=== PATIENT | male | born 1975 | race Caucasian/White ===

== ENCOUNTER 2016-11-05 21:00 | Emergency (ER) | payer OTHER ==
[~2016-11-05] VITALS: Ht 188 cm; Wt 121.1 kg
[~2016-11-05 21:00] MED LIST: ALPR1TAB2 PO; AMOX875T PO; DEXT20TA2 PO; LAMO100T5 PO; OXYC-328 PO; PROM25TA10 PO
[2016-11-05 22:00] VITALS: BP 147/77
--- NOTE | 2016-11-05 22:15 | PHYS DOC ---
Past Medical History Past Medical History: Anxiety, Bipolar, Other Additional Past Medical Histor: CHRONIC BACK PAIN, ADHD Past Surgical History: No Surgical History Alcohol Use: None Drug Use: None Adult General Chief Complaint Chief Complaint: SHOULDER INJURY [facility] HPI Patient is a 41 year old male presents to the emergency department stating that he lifted a pole with his left arm and is having shoulder pain. He states he has pulled his rotator cuff. Patient denies any history of rotator cuff problems in the past. Patient states he is right-hand dominant. He denies any numbness or tingling down to his lower extremity. 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 Patient has decreased comfort with moving his upper arm. Patient states that he has taken Tylenol and ibuprofen with minimal relief. Patient also states that he has an area that is red and around his left ankle. He states that the area itches and watkins he feels like he has been bitten by something. Review of Systems Review of Systems Constitutional: Denies fever or chills [] Eyes: Denies change in visual acuity, redness, or eye pain [] HENT: Denies nasal congestion or sore throat [] Respiratory: Denies cough or shortness of breath [] Cardiovascular: No additional information not addressed in HPI [] GI: Denies abdominal pain, nausea, vomiting, bloody stools or diarrhea [] : Denies dysuria or hematuria [] Musculoskeletal: Denies back pain. Complaint of left shoulder pain Integument: Patient with rash noted on his left lower leg around the ankle area.. Neurologic: Denies headache, focal weakness or sensory changes [] Endocrine: Denies polyuria or polydipsia [] Allergies Allergies Allergies Coded Allergies Type Severity Reaction Last Updated Verified No Known Drug Allergies 01/02/16 No Physical Exam Physical Exam Constitutional: Well developed, well nourished, no acute distress, non-toxic appearance. [] HENT: Normocephalic, atraumatic, bilateral external ears normal, oropharynx moist, no oral exudates, nose normal. [] Eyes: PERRLA, EOMI, conjunctiva normal, no discharge. [] Neck: Normal range of motion, no tenderness, supple, no stridor. [] Cardiovascular:Heart rate regular rhythm, no murmur [] Lungs & Thorax: Bilateral breath sounds clear to auscultation [] Skin: Warm, dry, no erythema, patient has a red rash noted in the left lower leg. Patient appears to have red areas that is raised. Back: No tenderness Extremities: Left shoulder tenderness, no cyanosis, no clubbing, ROM intact, no edema. Patient was noted to have tenderness in the rotator cuff area. Patient has equal sensation noted in the upper arms. Peripheral pulses are 2+ cap refill brisk less than 2 seconds. Neurologic: Alert and oriented X 3, normal motor function, normal sensory function, no focal deficits noted. [] Psychologic: Affect normal, judgement normal, mood normal. [] Current Patient Data Vital Signs Vital Signs Date Time Temp Pulse Resp B/P (MAP) Pulse Ox O2 Delivery O2 Flow Rate FiO2 11/05/16 22:00 97.7 106 21 99 Room Air 97.7 EKG EKG [] Radiology/Procedures Radiology/Procedures [] Course & Med Decision Making Course & Med Decision Making Pertinent Labs and Imaging studies reviewed. (See chart for details) Patient was instructed will place him on doxycycline however I also believe that he needs to be on an antifungal medication. We'll recommend Lotrimin cream for him. X-rays are negative for any bony abnormalities per Dr. Napier. Patient will be placed in a sling with discharge instructions for ice packs on 20 minutes off 20 minutes several times a day elevation as much as possible. Recommended taking his arm out of the sling 3 or 4 different times a day to do active range of motion. Patient was also encouraged to take doxycycline to help with his leg bite area and he will also be provided with Lotrimin cream in which I do believe that will help the rash area. Patient will also be encouraged keep the areas clean and dry. Patient will be discharged home in stable condition signs and symptoms to return back to emergency department as been provided. [] Dragon Disclaimer Dragon Disclaimer This electronic medical record was generated, in whole or in part, using a voice recognition dictation system. Departure Departure Impression: Primary Impression: Left shoulder pain Additional Impression: Ringworm of body Disposition: HOME, SELF-CARE Condition: STABLE Referrals: NO PCP (PCP) SHIRLEY COLBERT II, MD Patient Instructions: Body Ringworm, Shoulder Pain, [id number] Additional Instructions: Activity as tolerated. Wear the sling for the left arm for the next week. Take your arm out of the sling 4-5 times a day to do active range of motion. Tylenol or ibuprofen for pain and discomfort. Ice packs on 20 minutes off 20 minutes several times a day. Follow-up with orthopedic for further pain management for your shoulder. Medications as prescribed for your rash. Keep the area clean and dry. Keep the area as cool as possible to avoid itching and irritation. Follow-up the primary care physician in the next week. Return back to emergency prior signs symptoms of become worse. Scripts Clotrimazole (LOTRIMIN AF) 12 Gm Cream..g. 1 TOMÁS TP BID, #24 GM Prov: AZRA UMANZOR APRN 11/05/16 Doxycycline Hyclate (DOXYCYCLINE HYCLATE) 100 Mg Capsule 1 CAP PO BID, #20 CAP Prov: AZRA UMANZOR APRN 11/05/16 Problem Qualifiers AZRA UMANZOR APRN Nov 05, 2016 22:15
[2016-11-05] MEDS ORDERED: DOXY100C2 PO (22:44)
[2016-11-05] MEDS ORDERED: CLOT12CR2 TP (22:44)
--- NOTE | 2016-11-06 07:52 | RAD ---
Indication injury, pain. Internally and externally rotated views of the left shoulder as well as a Y view were obtained. No bony abnormality is seen.
== END 2016-11-05 22:50 | disposition home or self-care (01) ==
LOC: ER 21:00
DX: M25.512 Pain in left shoulder (principal); B35.4 Tinea corporis; F90.9 Attention-deficit hyperactivity disorder, unspecified type; G89.29 Other chronic pain; F31.9 Bipolar disorder, unspecified
CPT/HCPCS: 73030; 99284

== ENCOUNTER 2017-04-25 20:42 | Emergency (ER) | payer OTHER ==
[2017-04-25] MEDS: HYDROcodone/APAP 10/325 1 TAB TABLET PO (22:32)
== END 2017-04-25 23:00 | disposition home or self-care (01) ==
LOC: ER 23:00
DX: M25.512 Pain in left shoulder (principal); G89.29 Other chronic pain; F17.200 Nicotine dependence, unspecified, uncomplicated; Z88.0 Allergy status to penicillin; Z88.8 Allergy status to other drugs, medicaments and biological substances; X50.0XXA Overexertion from strenuous movement or load, initial encounter; Y93.H1 Activity, digging, shoveling and raking; Y92.89 Other specified places as the place of occurrence of the external cause; Y99.8 Other external cause status
CPT/HCPCS: 73030; 99284

== ENCOUNTER 2019-09-01 14:33 | Emergency (ER) | payer OTHER ==
[~2019-09-01] VITALS: Ht 188 cm; Wt 126.0 kg
[~2019-09-01 14:33] MED LIST changes: +CLOT12CR2 TP; +DOXY100C2 PO; +HYDR-3164 PO; -OXYC-328 PO; +OXYC1TAB22 PO
[2019-09-01] MEDS ORDERED: diazePAM 5 MG TABLET PO ONE (15:00)
[2019-09-01] MEDS ORDERED: MORPHINE SULFATE 10 MG/ML VIAL. IV ONE (15:00)
[2019-09-01] MEDS ORDERED: HYDROcodone/APAP 5/325MG 1 TAB TABLET PO ONE (15:00)
[2019-09-01 15:18] VITALS: BP 162/107
[2019-09-01 15:19] LABS: BILIRUBIN,URINE NEGATIVE (NEG); CLARITY,URINE CLEAR; COLOR,URINE YELLOW; NITRITE,URINE NEGATIVE (NEG); PH,URINE 5.5 (<5.0-8.0); PROTEIN,URINE NEGATIVE (NEG-TRACE); UROBILINOGEN,URINE 0.2 mg/dL (0.2 mg/dL)
--- NOTE | 2019-09-01 15:21 | PHYS DOC ---
Past Medical History Past Medical History: Anxiety, Bipolar, Other Additional Past Medical Histor: CHRONIC BACK PAIN, ADHD Past Surgical History: No Surgical History Smoking Status: Current Every Day Smoker Alcohol Use: None Drug Use: None Social History Narrative: OCCASIONAL MARIJUANA USE General Adult EDM: Chief Complaint: BACK INJURY HPI: HPI: Patient is a 44 year old male who presents to the ED today complaining of moderate bilateral low back pain radiating to the left groin region that began after he lifted up an air conditioner at 1 PM. Patient reports the pain is worse on certain movements. Denies anything specifically relieving the pain. He states the pain is sharp and constant. He is restless thrashing around in bed. Patient denies any pain radiating to bilateral lower extremities. Denies any loss of bowel/bladder function. Review of Systems: Review of Systems: Constitutional: Denies fever or chills. [] Eyes: Denies change in visual acuity. [] HENT: Denies nasal congestion or sore throat. [] Respiratory: Denies cough or shortness of breath. [] Cardiovascular: Denies chest pain or edema. [] GI: Denies abdominal pain, nausea, vomiting, bloody stools or diarrhea. [] : Denies dysuria. [] Musculoskeletal: Reports low back pain radiating to the left groin Integument: Denies rash. [] Neurologic: Denies headache, focal weakness or sensory changes. [] Psychiatric: Denies depression or anxiety. [] Heart Score: Risk Factors: Risk Factors: DM, Current or recent (<one month) smoker, HTN, HLP, family history of CAD, obesity. Risk Scores: Score 0 - 3: 2.5% MACE over next 6 weeks - Discharge Home Score 4 - 6: 20.3% MACE over next 6 weeks - Admit for Clinical Observation Score 7 - 10: 72.7% MACE over next 6 weeks - Early Invasive Strategies Current Medications: Current Medications Medications (Trade) Dose Ordered Sig/Meng Start Time Stop Time Status Last Admin Dose Admin Acetaminophen/ Hydrocodone Bitart (Lortab 5/325) 1 tab 1X ONCE 09/01/19 15:00 09/01/19 15:01 DC 09/01/19 15:00 1 TAB Diazepam (Valium) 5 mg 1X ONCE 09/01/19 15:00 09/01/19 15:01 DC 09/01/19 15:00 5 MG Morphine Sulfate (Morphine Sulfate) 5 mg 1X ONCE 09/01/19 15:00 09/01/19 15:01 Cancel Allergies: Allergies: Allergies Coded Allergies Type Severity Reaction Last Updated Verified Penicillins Allergy Unknown 04/25/17 Yes oseltamivir Allergy Unknown 04/25/17 Yes Physical Exam: PE: Constitutional: Well developed, well nourished, no acute distress, non-toxic appearance. [] HENT: Normocephalic, atraumatic, bilateral external ears normal, oropharynx moist, no oral exudates, nose normal. [] Eyes: PERRLA, EOMI, conjunctiva normal, no discharge. [] Neck: Normal range of motion, no tenderness, supple, no stridor. [] Cardiovascular:Heart rate regular rhythm, no murmur [] Lungs & Thorax: Bilateral breath sounds clear to auscultation [] Abdomen: Bowel sounds normal, soft, no tenderness, no masses, no pulsatile masses. [] Skin: Warm, dry, no erythema, no rash. [] Back: Diffuse paraspinal muscle tenderness to the left lumbar spine, no midline lumbar spine tenderness, no CVA tenderness. [] Extremities: No tenderness, no cyanosis, no clubbing, ROM intact, no edema. [] Neurologic: Alert and oriented X 3, normal motor function, normal sensory function, no focal deficits noted. [] Psychologic: Affect normal, judgement normal, mood normal. [] Current Patient Data: Vital Signs: Vital Signs Date Time Temp Pulse Resp B/P (MAP) Pulse Ox O2 Delivery O2 Flow Rate FiO2 09/01/19 15:18 99 162/107 (125) 09/01/19 14:40 98.2 18 98 Room Air 98.2 EKG: EKG: [] Radiology/Procedures: Radiology/Procedures: [] Course & Med Decision Making: Course & Med Decision Making Pertinent Labs and Imaging studies reviewed. (See chart for details) This is a 44-year-old male patient presenting to the ED today with left low back pain radiating to the groin that began after lifting an air conditioning unit. Patient has no cauda equina syndrome symptoms. He was given hydrocodone and Valium in the ED and walked away. Nursing staff informs me he had complained about being hooked up to monitors and wanted them removed. I did not have a chance to talk to patient before he walked away though he is alert and oriented X4 and able to make his own decisions. Steven Disclaimer: Steven Disclaimer: This electronic medical record was generated, in whole or in part, using a voice recognition dictation system. Departure Departure Impression: Primary Impression: Acute lumbosacral myofascial strain Qualified Codes: S39.012A - Strain of muscle, fascia and tendon of lower back, initial encounter Disposition: 07 AGAINST MEDICAL ADVICE Condition: STABLE Referrals: NO PCP (PCP) JOAQUIN BAKER [employer] Sep 01, 2019 15:21
[2019-09-01 15:23] LABS: BACTERIA,URINE 0 /HPF (0-FEW); HYALINE CASTS, URINE FEW /HPF
== END 2019-09-01 15:13 | disposition left against medical advice (07) ==
LOC: ER 14:33
DX: S39.012A Strain of muscle, fascia and tendon of lower back, initial encounter (principal); R10.32 Left lower quadrant pain; F31.9 Bipolar disorder, unspecified; G89.29 Other chronic pain; F17.200 Nicotine dependence, unspecified, uncomplicated; Z88.0 Allergy status to penicillin; Z88.8 Allergy status to other drugs, medicaments and biological substances; X50.0XXA Overexertion from strenuous movement or load, initial encounter; Y93.89 Activity, other specified; Y92.89 Other specified places as the place of occurrence of the external cause; Y99.8 Other external cause status
CPT/HCPCS: 81001; 99283